=== PATIENT | female | born 1975 | race Caucasian/White ===

== ENCOUNTER → 2018-07-29 | Outpatient (CLI) | payer OTHER ==
--- NOTE | 2018-07-29 16:34 | RADIOLOGY IMAGING REPORT ---
FACILITY: [facility] - [place] PATIENT NAME: JAVID VUONG : [id number] MR: [id number] V: [id number] EXAM DATE: [id number] ORDERING PHYSICIAN: YULIYA LAWS TECHNOLOGIST: Marva Rodriguez PROCEDURE:BILATERAL DIGITAL SCREENING MAMMOGRAM WITH CAD ASSISTED INTERPRETATION & 3D TOMOSYNTHESIS COMPARISON:None, Baseline mammogram. INDICATIONS:screening FINDINGS: Extremely dense heterogeneous fibroglandular tissue is seen throughout the breasts. There are 2 small groupings of calcifications in the posterior 1/3 of the Right breast 1 is in the quadrant and 1 is in the approximate 12 o'clock position of the Left breast for which Spot compression view is recommended. There is also a focal area of increased density posterior to mid nipple line on the Left CC view in the posterior 1/3 for which Spot compression view is recommended. DIAGNOSTIC CATEGORY 0--INCOMPLETE: NEED ADDITIONAL IMAGING EVALUATION. RECOMMENDATIONS: ADDITIONAL MAMMOGRAPHIC VIEWS REQUIRED: BILATERAL BREASTS. IMPRESSION: BIRADS 0: Incomplete. Additional views of both breasts recommended as described above. Dictated by: Mary Monson M.D. on 07/29/2018 at 15:29 Transcribed by: DIEGO on 07/29/2018 at 15:36 Approved by: Mary Monson M.D. on 07/29/2018 at 16:33 [facility]
== END ==
LOC: MAMO 00:35
PROVIDERS: ATTEND Nurse Practitioner Family
DX: R92.2 Inconclusive mammogram (principal)
CPT/HCPCS: 77063; 77067

== ENCOUNTER 2018-11-03 15:24 | Outpatient (RCR) | payer OTHER ==
[2018-11-03 16:13] LABS: INR 0.92
--- NOTE | 2018-11-05 08:51 | RADIOLOGY IMAGING REPORT ---
FACILITY: [facility] PATIENT NAME: JAVID VUONG : [id number] MR: [id number] V: [id number] EXAM DATE: ORDERING PHYSICIAN: YULIYA LAWS TECHNOLOGIST: Cristy Mares PROCEDURE: STEREOTACTIC RIGHT BREAST BIOPSY COMPARISON: None. INDICATIONS: In determinant calcifications in the approximate 6 o'clock position of the Right breast. FINDINGS: Preliminary Right MLO view was performed and a Spot compression view in the medial lateral view of the Right breast was performed to localize the in determinant calcifications in the 6 o'clock position of the Right breast prior to stereotactic removal. On the conventional additional mammograms these calcifications are seen along the inferior aspect of the Right breast at the junction of the middle and posterior 1/3's. Numerous attempts at localizing these calcifications with digital stereo pear images in the stereotactic suite were unsuccessful therefore the procedure could not be performed. Surgical excision of these calcifications with mammographically guided hook wire localization recommended for further evaluation. DIAGNOSTIC CATEGORY 4--SUSPICIOUS FOR MALIGNANCY. RECOMMENDATIONS: SURGICAL BIOPSY COORDINATED WITH MAMMOGRAM HOOKWIRE LOCALIZATION: RIGHT BREAST. CONCLUSION: BIRADS 4: Suspicious for malignancy. Surgical biopsy coordinated with mammographic hook wire localization of the in determinant calcifications in the 6 o'clock position of the Right breast recommended. Dictated by: Mary Monson M.D. on 11/04/2018 at 16:31 Transcribed by: DIEGO on 11/05/2018 at 8:01 Approved by: Mary Monson M.D. on 11/05/2018 at 8:50 [facility]
== END 2018-11-04 18:00 | disposition home or self-care (01) ==
LOC: MAMO 15:24 → EDSTATUS 11-04 15:05 → MAMO 11-04 18:00
PROVIDERS: ATTEND Nurse Practitioner Family
DX: R92.1 Mammographic calcification found on diagnostic imaging of breast (principal)
CPT/HCPCS: 19081; 36415; 85610

== ENCOUNTER 2019-01-21 00:32 | Day surgery (SDC) | payer OTHER ==
[~2019-01-21] VITALS: Ht 160 cm; Wt 51.7 kg
[~2019-01-21 00:32] MED LIST: ESCI20TA38 PO; Fish Oil PO; MULT-1176 PO; fish oil
[2019-01-21] MEDS ORDERED: LIDOCAINE MPF 1% 5 ML VIAL ONE ×2 (09:19)
[2019-01-21 10:08] VITALS: BP 106/82
[2019-01-21] MEDS ORDERED: ceFAZolin(*) 1 GM VIAL 1 GM in NS(*) 0.9% 100 ML MINI-BAG 100 ML IVPB ONE (11:00)
[2019-01-21] MEDS ORDERED: NORMOSOL R SOLN(*) 1000 ML BAG 1,000 ML IV PRN (11:00)
[2019-01-21] MEDS ORDERED: MIDAZOLAM 2 MG/2 ML VIAL IVP PRN (11:00)
[2019-01-21] MEDS ORDERED: LIDOCAINE/SOD BICARB 8.4% SYR ID ONE (11:00)
[2019-01-21] MEDS ORDERED: FAMOTIDINE 20 MG TAB PO ONE (11:00)
[2019-01-21] MEDS ORDERED: ONDANSETRON 4 MG/2 ML VIAL ONE (11:37)
[2019-01-21] MEDS ORDERED: PROPOFOL EMUL(*) 10MG/ML 20 ML 40 ML ONE (11:37)
[2019-01-21] MEDS ORDERED: fentaNYL CITR 100 MCG/2 ML AMP ONE ×2 (11:37→13:13)
[2019-01-21] MEDS ORDERED: DEXAMETHASONE SOD PHOS 10MG/ML ONE (11:37)
[2019-01-21] MEDS ORDERED: ROPIVACAINE 0.5% 20 ML VIAL ONE (11:42)
[2019-01-21] MEDS ORDERED: DOCU-416 PO (13:06)
[2019-01-21] MEDS ORDERED: TRAM-420 PO (13:06)
--- NOTE | 2019-01-21 13:09 | Short(Outpt) Discharge Summary ---
Discharge Summary Reason for Hosp/Final Diag: (1) Calcification of right breast on mammography Status: Chronic Hospital Course & Plan: Right breast calcifications excised without problems. Departure Discharge to: Home, Self Care Discharge Instructions Home Meds Active Scripts Docusate Sodium (COLACE) 100 Mg Capsule, 1 CAP PO BID, #30 CAP 0 Refills TAKE WITH A FULL GLASS OF WATER Prov:JULIA DEE MD 01/21/19 Tramadol Hcl (TRAMADOL HCL) 50 Mg Tablet, 1 TAB PO Q4H PRN for PAIN, #20 TAB 0 Refills Prov:JULIA DEE MD 01/21/19 Reported Medications Multivits,Ca,Minerals/Iron/Fa (WOMEN'S DAILY CAPLET) 1 Each Tablet, 1 EACH PO QDAY 01/12/19 [Fish Oil ] No Conflict Check, PO DAILY 01/12/19 Escitalopram Oxalate (LEXAPRO) 20 Mg Tablet, 20 MG PO QDAY, TAB 01/04/19 Follow up Referrals: General Surgery - 02/01/19 @ Surgery, General with JULIA DEE MD You have a follow up appointment scheduled with Dr. Dee on 02/01/19, at 2:00pm. Diet: Regular Activity: As Tolerated Special Instructions: You may remove the white surgical dressings on 01/23/19, then you can shower. After showering, leave the incision open to air but leave the steristrips in place until they fall off on their own. Do not immerse the incision for 2 weeks. JULIA DEE MD Jan 21, 2019 13:09
--- NOTE | 2019-01-21 13:14 | Post Operative Progress Note ---
Post Operative Progress Note Date: Jan 21, 2019 Time: 13:09 Surgeon: Meaghan Dictation number: [id number] Anesthesia: LMA by Dr. Miller Pre-Op Diagnosis: Right breast calcifications Post-Op Diagnosis: ИРИНА Findings: C/W dx Procedure(s): Right breast wire guided lesion excision Specimen Removed:(May be N/A): Right breast lesion Complications: None Fluids: See anesthesia record Estimated Blood Loss: Minimal Date OP Note Dictated: Jan 21, 2019 Time OP Note Dictated: 13:10 JULIA DEE MD Jan 21, 2019 13:14
[2019-01-21] MEDS ORDERED: traMADol 50 MG TAB ONE (13:49)
--- NOTE | 2019-01-21 13:52 | OPERATIVE REPORT 1 ---
EVENT DATE: January 21, 2019 SURGEON: Piter Harding MD ANESTHESIOLOGIST: Kevon Miller MD ANESTHESIA: LMA. PREOPERATIVE DIAGNOSIS Suspicious cluster microcalcifications at the 6 o'clock position of her right breast. POSTOPERATIVE DIAGNOSIS Suspicious cluster microcalcifications at the 6 o'clock position of her right breast. PROCEDURE PERFORMED Wire-guided excision of microcalcifications from right lower breast. COMPLICATIONS None. CONDITION Stable. ESTIMATED BLOOD LOSS Minimal. INDICATIONS This is a 43-year old female who presented to my office with new mammogram findings of cluster microcalcifications at the 6 o'clock position of her right breast and these were suspicious and biopsy was recommended. Stereotactic biopsy was not possible because of the very posterior position of these calcifications so wire-guided surgical excision was recommended. DESCRIPTION OF PROCEDURE The patient was brought into the operating room and placed supine on the operating table. LMA anesthesia was administered and her right breast was prepped and draped in sterile fashion. Time-out was completed and I marked the skin overlying the lesions after comparing it to the preoperative imaging and anesthetized the skin with 0.5% ropivacaine plain. I made a curvilinear incision parallel with Casey's lines and the skin of the lower right breast and dissected through the dermis and subcutaneous fat. I then planed my dissection over the wire, pulled the wire into the wound and then dissected around the wire all the way down around the tip of the wire while comparing it with both a wire that I was using a guide in the OR and the preop imaging. Once it was removed, I marked the specimen with a long lateral silk suture and a short superior silk suture. I then placed on a grid and walked it over to the mammogram and we took two-view image of it and it looked like the calcifications were well within the specimen. I then went back to the operating room, irrigated and dried the wound and then closed the deep tissues with interrupted 3-0 Vicryl sutures and closed the skin with interrupted deep dermal 3-0 Vicryl sutures and 4-0 Monocryl running subcuticular sutures. The skin was cleaned and dried and Steri-Strips applied followed by sterile surgical dressing. The patient was awakened and LMA removed. She was transferred to the recovery room in stable condition, having tolerated the procedure without any apparent problems. JOHNNY
[2019-01-21 13:55] VITALS: BP 83/56
[2019-01-21 14:00] VITALS: BP 101/68
[2019-01-21 14:04] VITALS: BP 100/69
[2019-01-21 14:05] VITALS: BP 94/64
--- NOTE | 2019-01-22 09:13 | RADIOLOGY IMAGING REPORT ---
FACILITY: [facility] - [place] PATIENT NAME: JAVID VUONG : [id number] MR: [id number] V: [id number] EXAM DATE: [id number] ORDERING PHYSICIAN: JULIA DEE TECHNOLOGIST: Cristy Mares PROCEDURE: NEEDLE LOCALIZATION RIGHT BREAST COMPARISON: None. INDICATIONS: Indeterminate calcifications 6 o'clock position Right breast FINDINGS: Informed consent was obtained. An attempt was made to localize the 6 o'clock microcalcifications from an anterior approach. The patient's Right breast was prepped in the usual sterile fashion. Local anesthesia was accomplished with 1% Lidocaine. Upon placement of the needle hookwire combination the patient stated she felt faint & briefly lost consciousness. The needle was removed & the patient was stabilized. The patient stated she felt fine to continue with the procedure & the calcifications were then localized from a lateral approach. The Right breast was then prepped in the usual sterile fashion. Local anesthesia again accomplished with 1% Lidocaine. A needle hookwire combination was advanced percutaneously just posterior to the indeterminate calcifications in the 6 o'clock position of the Right breast. The hookwire was deployed & the needle was removed. The patient was sent to the operating room for surgical excision. The specimen radiograph demonstrated the hookwire & the calcifications to be located within the specimen radiograph. CONCLUSION: Successful mammographically guided hookwire localization in the Right breast. Dictated by: Mary Monson M.D. on 01/21/2019 at 16:08 Transcribed by: RICHARDSON on 01/22/2019 at 8:44 Approved by: Mary Monson M.D. on 01/22/2019 at 9:12 [facility]
--- NOTE | 2019-01-22 09:14 | RADIOLOGY IMAGING REPORT ---
FACILITY: [facility] PATIENT NAME: JAVID VUONG : [id number] MR: [id number] V: [id number] EXAM DATE: ORDERING PHYSICIAN: JULIA DEE TECHNOLOGIST: Cristy Mares PROCEDURE: BREAST SPECIMEN COMPARISON: None. INDICATIONS: Right breast specimen FINDINGS: Two views of the Right breast specimen demonstrated the microcalcifications & the hookwire to be located within the specimen. CONCLUSION: As above. Dictated by: Mary Monson M.D. on 01/21/2019 at 16:09 Transcribed by: RICHARDSON on 01/22/2019 at 8:46 Approved by: Mary Monson M.D. on 01/22/2019 at 9:12 [facility]
== END 2019-01-21 13:55 | disposition home or self-care (01) ==
LOC: OR 00:32
PROVIDERS: ATTEND Surgery
DX: D24.1 Benign neoplasm of right breast (principal)
CPT/HCPCS: 19125; 19283; 84703; 88305; J0690; J1100; J2001; J2250; J2405; J2704; J2795; J3010